=== PATIENT | female | born 1945 | race Two or more races ===

== ENCOUNTER 2018-05-01 06:46 | Day surgery (SDC) | payer OTHER | END 2018-05-01 13:35 | disposition home or self-care (01) | LOC: AMB-ENDOS 06:46 | DX: K57.30 Diverticulosis of large intestine without perforation or abscess without bleeding (principal); Z86.010 Personal history of colon polyps; K62.89 Other specified diseases of anus and rectum ==

== ENCOUNTER 2018-10-08 08:02 | Outpatient (CLI) | payer OTHER ==
[2018-10-08] MEDS ORDERED: LABETALOL HCL300 MG PO (17:58)
[2018-10-08] MEDS ORDERED: CLONAZEPAM0.5 MG PO (17:59)
[2018-10-08] MEDS ORDERED: SINGULAIR10 MG PO (17:59)
== END 2018-10-08 08:11 | disposition home or self-care (01) ==
LOC: RAD 08:02
DX: K57.30 Diverticulosis of large intestine without perforation or abscess without bleeding (principal); Z86.010 Personal history of colon polyps; N81.6 Rectocele; K64.1 Second degree hemorrhoids; N73.6 Female pelvic peritoneal adhesions (postinfective)

== ENCOUNTER 2018-12-03 12:00 | Inpatient (IN) | payer OTHER ==
[~2018-12-03] VITALS: Ht 152.4 cm; Wt 63.0 kg
[~2018-12-03 12:00] MED LIST: CLONAZEPAM0.5 MG PO; LABETALOL HCL300 MG PO; SINGULAIR10 MG PO
[2018-12-03] MEDS ORDERED: VALERIAN ROOT445 MG PO (16:50)
[2018-12-11] MEDS ORDERED: HYOSCYAMINE0.125 M1 SL (11:24)
== END 2018-12-11 14:00 | disposition home or self-care (01) | DRG 331 ==
LOC: SURH 12-08 07:08 → O/R 12-08 07:08 → SURH 12-08 10:15
PROVIDERS: ADMIT Surgery
PROC: 0DJD8ZZ Inspection of Lower Intestinal Tract, Via Natural or Artificial Opening Endoscopic (ICD-10-PCS; 2018-12-08)
PROC: 0T9B70Z Drainage of Bladder with Drainage Device, Via Natural or Artificial Opening (ICD-10-PCS; 2018-12-08)
PROC: 0DTN4ZZ Resection of Sigmoid Colon, Percutaneous Endoscopic Approach (ICD-10-PCS; principal; 2018-12-08 10:15)
DX: K57.52 Diverticulitis of both small and large intestine without perforation or abscess without bleeding (principal); K66.0 Peritoneal adhesions (postprocedural) (postinfection); K64.1 Second degree hemorrhoids; F41.8 Other specified anxiety disorders; I11.9 Hypertensive heart disease without heart failure; R73.01 Impaired fasting glucose

== ENCOUNTER 2022-12-11 07:00 | Day surgery (SDC) | payer OTHER ==
[~2022-12-11] VITALS: Ht 152.4 cm; Wt 66.2 kg
[~2022-12-11 07:00] MED LIST changes: +HYOSCYAMINE0.125 M1 SL; +VALERIAN ROOT445 MG PO
== END 2022-12-11 20:00 | disposition home or self-care (01) ==
LOC: CIR.AMB 07:00
PROVIDERS: ATTEND Orthopaedic Surgery Hand Surgery
DX: S52.532A Colles' fracture of left radius, initial encounter for closed fracture (principal); Z20.822 Contact with and (suspected) exposure to COVID-19; E11.9 Type 2 diabetes mellitus without complications; E78.00 Pure hypercholesterolemia, unspecified; D65 Disseminated intravascular coagulation [defibrination syndrome]; I10 Essential (primary) hypertension
CPT/HCPCS: 25609; 25118; 25280; L8699

== ENCOUNTER 2023-09-25 12:29 | Outpatient (CLI) | payer OTHER | END 2023-09-25 12:30 | disposition home or self-care (01) | LOC: RAD 12:29 | DX: S72.141D Displaced intertrochanteric fracture of right femur, subsequent encounter for closed fracture with routine healing (principal); S52.531D Colles' fracture of right radius, subsequent encounter for closed fracture with routine healing ==

== ENCOUNTER 2024-04-02 08:27 | Outpatient (CLI) | payer OTHER | END 2024-04-02 08:39 | disposition home or self-care (01) | LOC: RAD 08:27 | PROVIDERS: ATTEND Psychiatry & Neurology Clinical Neurophysiology | DX: M93.0 Slipped upper femoral epiphysis (nontraumatic) (principal) ==

== ENCOUNTER 2024-04-27 07:36 | Outpatient (CLI) | payer OTHER | END 2024-04-27 07:40 | disposition home or self-care (01) | LOC: TOM 07:36 | PROVIDERS: ATTEND Orthopaedic Surgery | DX: M25.532 Pain in left wrist (principal); M25.551 Pain in right hip ==

== ENCOUNTER 2024-05-08 12:31 | Outpatient (CLI) | payer OTHER | END 2024-05-08 12:32 | disposition home or self-care (01) | LOC: NUCLEAR 12:31 | PROVIDERS: ATTEND Orthopaedic Surgery | DX: M81.0 Age-related osteoporosis without current pathological fracture (principal) ==

== ENCOUNTER → 2024-07-23 12:48 | Outpatient (CLI) | payer OTHER ==
[2024-07-23 13:20] LABS: HEMATOCRIT 42.9 % (36.0-45.00); HEMOGLOBIN 14.4 g/dL (12.0-15.00); MEAN CELL VOLUME 92.8 fL (80.00-100.00); MEAN CORPUSCULAR HEMOGLOBIN 31.2 pg (27.00-32.0); MEAN CORPUSCULAR HGB CONC 33.6 g/dl (32.0-36.0); PLATELET COUNT 296 K/uL (150-450); RED BLOOD COUNT 4.62 M/uL (4.00-6.00); RED CELL DISTRIBUTION WIDTH 13.4 % (11.5-14.5)
== END | disposition home or self-care (01) ==
LOC: LAB 12:48
PROVIDERS: ATTEND Orthopaedic Surgery
DX: D64.9 Anemia, unspecified (principal)

== ENCOUNTER 2024-08-03 06:57 | Outpatient (CLI) | payer OTHER ==
[2024-08-03] MEDS ORDERED: LABETALOL HCL100 MG PO (07:43)
[2024-08-03 07:44] VITALS: BP 163/72
[2024-08-03 08:11] LABS: HEMATOCRIT 40.2 % (36.0-45.00); HEMOGLOBIN 13.6 g/dL (12.0-15.00); MEAN CELL VOLUME 92.9 fL (80.00-100.00); MEAN CORPUSCULAR HEMOGLOBIN 31.5 pg (27.00-32.0); MEAN CORPUSCULAR HGB CONC 33.9 g/dl (32.0-36.0); PLATELET COUNT 251 K/uL (150-450); RED BLOOD COUNT 4.33 M/uL (4.00-6.00); RED CELL DISTRIBUTION WIDTH 13.1 % (11.5-14.5)
[2024-08-03 08:27] LABS: INR 0.96; PARTIAL THROMBOPLASTIN TIME 23.2 SECONDS (22.0-34.0); PROTHROMBIN TIME 10.5 SECONDS (9.0-11.5)
[2024-08-03 08:59] LABS: ALBUMIN 3.4 gm/dL (3.4-5.0); BILIRUBIN TOTAL 0.29 mg/dL (0.3-1.2); CALCIUM 9.2 mg/dL (8.5-10.1); CREATININE SERUM 0.58 mg/dL (0.55-1.02); GFR 100.02; GLOBULINA 3.5 G/DL (2.4-3.5); POTASSIUM 3.7 mEq/L (3.5-5.1); TOTAL PROTEIN 6.9 gm/dL (6.4-8.2)
[2024-08-03 12:51] LABS: PH,URINE 5.5 (5.0-8.0); URINE APPEARANCE Clear; URINE BILIRRUBIN Negative (NEGATIVE); URINE BLOOD Negative; URINE COLOR Yellow; URINE GLUCOSE Negative (NEGATIVE); URINE KETONE Trace (NEGATIVE); URINE LEUKOCYTE Trace; URINE NITRATE Negative; URINE PROTEIN Negative (NEGATIVE); URINE UROBILINOGEN 0.2 E.U./dl
[2024-08-03 12:54] LABS: URINE BACTERIA 738.2 uL (0.0-1933); URINE EPITHELIAL CELLS 53.7 uL (0.0-38.8); URINE RBC 47.4 uL (0.0-20.8); URINE WBC 68.1 uL (0.0-23.2)
[2024-08-03 12:55] LABS: URINE CAST 0.15 uL (0.0-1.40)
== END 2024-08-03 07:19 | disposition home or self-care (01) ==
LOC: LAB 06:57
PROVIDERS: ATTEND Orthopaedic Surgery
DX: D64.9 Anemia, unspecified (principal); E88.89 Other specified metabolic disorders; D68.8 Other specified coagulation defects; N39.0 Urinary tract infection, site not specified; Z22.322 Carrier or suspected carrier of Methicillin resistant Staphylococcus aureus; E11.9 Type 2 diabetes mellitus without complications; I10 Essential (primary) hypertension; Z76.89 Persons encountering health services in other specified circumstances

== ENCOUNTER 2024-08-20 11:15 | Inpatient (IN) | payer OTHER ==
[~2024-08-20] VITALS: Ht 152.4 cm; Wt 68.0 kg
[~2024-08-20 11:15] MED LIST changes: +LABETALOL HCL100 MG PO
[2024-08-20 14:28] VITALS: BP 105/58
[2024-08-25] MEDS ORDERED: SODIUM CHLORIDE 0.45 % 1,000 ML IV SCH (13:45)
[2024-08-25] MEDS ORDERED: ONDANSETRON HCL 2 MG/ML VIAL IV PRN (13:45)
[2024-08-25] MEDS ORDERED: TRAMADOL HCL 50 MG TABLET PO PRN (13:45)
[2024-08-25] MEDS ORDERED: MEPERIDINE HCL/PF 50 MG/ML VIAL IM PRN (13:45)
[2024-08-25] MEDS ORDERED: ONDANSETRON 4 MG TAB.RAPDIS PO PRN (13:45)
[2024-08-25] MEDS ORDERED: PROMETHAZINE HCL 50 MG/ML AMPUL IM PRN (13:45)
[2024-08-25] MEDS ORDERED: MORPHINE SULFATE 4 MG/ML VIAL IV ONE ×2 (14:10→14:40)
[2024-08-25] MEDS ORDERED: VANCOMYCIN HCL 1,000 MG VIAL IR ONE (14:15)
[2024-08-25] MEDS ORDERED: POLYMYXIN B SULFATE 500,000 U VIAL IR ONE (14:15)
[2024-08-25] MEDS ORDERED: ISOPROPYL ALCOHOL 30 ML OUNCE TOP ONE (14:15)
[2024-08-25] MEDS ORDERED: CEFOXITIN SODIUM 2,000 MG VIAL IV ONE (14:15)
[2024-08-25] MEDS ORDERED: EPINEPHRINE HCL/PF 1 MG/ML AMPUL IR ONE (14:15)
[2024-08-25] MEDS ORDERED: TRANEXAMIC ACID 100MG/1ML (1000MG) AMPUL IV ONE (14:15)
[2024-08-25] MEDS ORDERED: ENALAPRILAT DIHYDRATE 1.25 MG/ML VIAL IV PRN (15:00)
[2024-08-25] MEDS ORDERED: ACETAMINOPHEN 325 MG TABLET PO SCH (17:00)
[2024-08-25] MEDS ORDERED: PANTOPRAZOLE SODIUM 40 MG TABLET.DR PO SCH (17:00)
[2024-08-25] MEDS ORDERED: LABETALOL HCL 100 MG TABLET PO SCH (17:00)
[2024-08-25] MEDS ORDERED: CEFAZOLIN SODIUM 1,000 MG VIAL IV SCH (17:00)
[2024-08-25 17:31] VITALS: BP 105/58; O2SAT 99
[2024-08-25 20:53] VITALS: BP 106/53; O2SAT 98
[2024-08-26 00:54] VITALS: BP 103/60
[2024-08-26 06:26] LABS: HEMATOCRIT 26.6 % (36.0-45.00); MEAN CELL VOLUME 94.1 fL (80.00-100.00); MEAN CORPUSCULAR HGB CONC 34.6 g/dl (32.0-36.0); PLATELET COUNT 227 K/uL (150-450); RED BLOOD COUNT 2.82 M/uL (4.00-6.00)
[2024-08-26 06:36] LABS: HEMOGLOBIN 9.2 g/dL (12.0-15.00); MEAN CORPUSCULAR HEMOGLOBIN 32.6 pg (27.00-32.0)
[2024-08-26 07:57] VITALS: BP 100/61
[2024-08-26] MEDS ORDERED: RIVAROXABAN 10 MG TAB PO SCH (09:00)
[2024-08-26 15:42] VITALS: BP 106/66
[2024-08-27 00:32] VITALS: BP 101/55; O2SAT 96
[2024-08-27 07:22] LABS: HEMATOCRIT 23.8 % (36.0-45.00); MEAN CELL VOLUME 92.8 fL (80.00-100.00); MEAN CORPUSCULAR HEMOGLOBIN 32.2 pg (27.00-32.0); MEAN CORPUSCULAR HGB CONC 34.7 g/dl (32.0-36.0); PLATELET COUNT 185 K/uL (150-450); RED BLOOD COUNT 2.57 M/uL (4.00-6.00); RED CELL DISTRIBUTION WIDTH 13.1 % (11.5-14.5)
[2024-08-27 07:36] LABS: HEMOGLOBIN 8.3 g/dL (12.0-15.00)
[2024-08-27 07:53] VITALS: BP 106/66; O2SAT 94
[2024-08-27 16:00] VITALS: BP 132/60; O2SAT 100
[2024-08-27] MEDS ORDERED: DONEPEZIL HCL 10 MG TABLET PO SCH (21:15)
[2024-08-27] MEDS ORDERED: EFFEXOR 75 MG PO SCH (21:15)
[2024-08-27] MEDS ORDERED: LORazepam 0.5 MG TABLET PO SCH (21:15)
[2024-08-27 23:53] VITALS: BP 97/61; O2SAT 99
[2024-08-28 06:14] LABS: HEMATOCRIT 28.7 % (36.0-45.00); MEAN CELL VOLUME 88.8 fL (80.00-100.00); MEAN CORPUSCULAR HEMOGLOBIN 30.9 pg (27.00-32.0); MEAN CORPUSCULAR HGB CONC 34.8 g/dl (32.0-36.0); PLATELET COUNT 180 K/uL (150-450); RED BLOOD COUNT 3.23 M/uL (4.00-6.00); RED CELL DISTRIBUTION WIDTH 15.2 % (11.5-14.5)
[2024-08-28 10:54] VITALS: BP 114/68; O2SAT 96
[2024-08-28 16:00] VITALS: BP 104/64; O2SAT 97
[2024-08-28] MEDS ORDERED: PATIENTS OWN MEDICATION (MEDICAMENTO EN PISO) PO SCH (21:00)
== END 2024-08-29 07:04 | disposition home or self-care (01) | DRG 465 ==
LOC: OB/GYN 08-25 06:50 → O/R 08-25 06:50 → SURH 08-25 07:00 → O/R 08-25 14:33 → OB/GYN 08-25 15:51 → SURG 08-26 19:05
PROVIDERS: ADMIT Orthopaedic Surgery; ATTEND Orthopaedic Surgery
PROC: 0SW904Z Revision of Internal Fixation Device in Right Hip Joint, Open Approach (ICD-10-PCS; 2024-08-25)
PROC: 0MBL0ZZ Excision of Right Hip Bursa and Ligament, Open Approach (ICD-10-PCS; 2024-08-25)
PROC: 0SP90JZ Removal of Synthetic Substitute from Right Hip Joint, Open Approach (ICD-10-PCS; principal; 2024-08-25 07:00)
DX: T84.89XA Other specified complication of internal orthopedic prosthetic devices, implants and grafts, initial encounter (principal); M16.51 Unilateral post-traumatic osteoarthritis, right hip; Y65.8 Other specified misadventures during surgical and medical care

== ENCOUNTER 2024-09-10 11:04 | Emergency (ER) | payer OTHER ==
[~2024-09-10] VITALS: Ht 152.4 cm; Wt 68.9 kg
[2024-09-10] MEDS ORDERED: ATIVAN0.5 M1 PO (12:40)
[2024-09-10] MEDS ORDERED: ARICEPT10 MG (12:40)
[2024-09-10] MEDS ORDERED: EFFEXOR XR75 MG PO (12:40)
[2024-09-10] MEDS ORDERED: TRAMADOL HCL E100 M1 (12:40)
[2024-09-10] MEDS ORDERED: HORIZANT300 MG (12:40)
[2024-09-10] MEDS ORDERED: TYLENOL ARTHRI650 MG (12:41)
[2024-09-10 12:42] VITALS: BP 120/62; O2SAT 98
[2024-09-10] MEDS ORDERED: DEXAMETHASONE SODIUM PHOSPHATE 4 MG/ML VIAL IM ONE (13:30)
[2024-09-10] MEDS ORDERED: GUAIFENESIN/DEXTROMETHORPHAN 10ML BLIST.PACK PO ONE (13:30)
[2024-09-10 14:15] LABS: HEMATOCRIT 32.8 % (36.0-45.00); HEMOGLOBIN 10.7 g/dL (12.0-15.00); MEAN CELL VOLUME 92.4 fL (80.00-100.00); MEAN CORPUSCULAR HEMOGLOBIN 30.2 pg (27.00-32.0); MEAN CORPUSCULAR HGB CONC 32.7 g/dl (32.0-36.0); PLATELET COUNT 508 K/uL (150-450); RED BLOOD COUNT 3.55 M/uL (4.00-6.00); RED CELL DISTRIBUTION WIDTH 14.6 % (11.5-14.5)
[2024-09-10] MEDS ORDERED: TUSNEL LIQUID178 ML PO (15:33)
[2024-09-10] MEDS ORDERED: ZITHROMAX500 MG PO (15:33)
== END 2024-09-10 15:49 | disposition home or self-care (01) ==
LOC: ER 11:06
PROVIDERS: General Practice
DX: B34.9 Viral infection, unspecified (principal); I10 Essential (primary) hypertension; Z91.041 Radiographic dye allergy status; Z91.013 Allergy to seafood; Z88.6 Allergy status to analgesic agent; Z20.822 Contact with and (suspected) exposure to COVID-19
CPT/HCPCS: 36415; 96372; 99282; J1100

== ENCOUNTER 2024-09-28 12:04 | Outpatient (CLI) | payer OTHER ==
[~2024-09-28 12:04] MED LIST changes: +ARICEPT10 MG; +ATIVAN0.5 M1 PO; +EFFEXOR XR75 MG PO; +HORIZANT300 MG; +TRAMADOL HCL E100 M1; +TUSNEL LIQUID178 ML PO; +TYLENOL ARTHRI650 MG; +ZITHROMAX500 MG PO
== END 2024-09-28 12:07 | disposition home or self-care (01) ==
LOC: RAD 12:04
PROVIDERS: ATTEND Orthopaedic Surgery
DX: Z96.641 Presence of right artificial hip joint (principal)

== ENCOUNTER 2025-02-16 06:58 | Outpatient (CLI) | payer OTHER ==
[2025-02-16 12:55] LABS: ALBUMIN 3.3 gm/dL (3.4-5.0); BILIRUBIN TOTAL 0.36 mg/dL (0.3-1.2); CALCIUM 9.3 mg/dL (8.5-10.1); CREATININE SERUM 0.59 mg/dL (0.70-1.30); GFR 132.17; GLOBULINA 3.5 G/DL (2.4-3.5); PHOSPHOROUS 3.4 mg/dL (2.5-4.9); POTASSIUM 4.23 mEq/L (3.5-5.1); TOTAL PROTEIN 6.8 gm/dL (6.4-8.2)
== END 2025-02-16 07:05 | disposition home or self-care (01) ==
LOC: LAB 06:58
PROVIDERS: ATTEND Orthopaedic Surgery
DX: E55.9 Vitamin D deficiency, unspecified (principal); M85.9 Disorder of bone density and structure, unspecified; E56.1 Deficiency of vitamin K; E21.3 Hyperparathyroidism, unspecified; E88.89 Other specified metabolic disorders; M81.8 Other osteoporosis without current pathological fracture

== ENCOUNTER 2025-02-16 07:55 | Outpatient (CLI) | payer OTHER | END 2025-02-16 07:58 | disposition home or self-care (01) | LOC: RAD 07:55 | PROVIDERS: ATTEND Orthopaedic Surgery | DX: Z96.641 Presence of right artificial hip joint (principal) ==